=== PATIENT | female | born 1980 | race American Indian/Alaskan Native ===

== ENCOUNTER 2017-07-24 17:22 | Emergency (ER) | payer OTHER ==
[2017-07-24 18:15] LABS: Basophils % (Auto) 0.5 % (0.0-1.8); Eosinophils # (Auto) 0.1 K/mm3 (0.0-0.4); Hematocrit 43.8 % (30.3-42.9); Lymphocytes # (Auto) 2.4 K/mm3 (1.2-5.4); Lymphocytes % (Auto) 34.3 % (13.4-35.0); Mean Corpuscular HGB Conc 34 % (30-34); Mean Corpuscular Hemoglobin 29 pg (28-32); Mean Corpuscular Volume 85 fl (79-97); Monocytes # (Auto) 0.4 K/mm3 (0.0-0.8); Monocytes % (Auto) 6.2 % (0.0-7.3); Red Blood Count 5.14 M/mm3 (3.65-5.03); Red Cell Distribution Width 14.1 % (13.2-15.2)
[2017-07-24 18:16] LABS: Platelet Count 215 K/mm3 (140-440)
[2017-07-24 18:29] LABS: BUN/Creatinine Ratio 14; Blood Urea Nitrogen 10 mg/dL (7-17); Calcium 8.6 mg/dL (8.4-10.2); Hemolysis Index 6
--- NOTE | 2017-07-24 18:44 | XRay Report ---
FINAL REPORT PROCEDURE: Chest. TECHNIQUE: PA and lateral views. HISTORY: Shortness of breath . COMPARISON: No prior studies are available for comparison. FINDINGS: The heart and mediastinum appear normal. The lungs are clear and well expanded. There are no pleural effusions. The soft tissues and regional skeleton are unremarkable. IMPRESSION: Normal study.
--- NOTE | 2017-07-25 00:52 | Emergency Department Report ---
ED General Adult HPI - General Chief complaint: Chest Pain Stated complaint: CHEST PAIN Time Seen by Provider: 07/25/17 00:18 Source: patient Mode of arrival: Ambulatory Limitations: No Limitations - History of Present Illness Initial comments: Ms. Garg is a healthy 37-year-old female with anxiety depression. She presents with 3 nights of chest pain. When she lays flat at night she feels as if she can't breathe. She feels a heaviness. The symptoms improve when she sits up. Mother's Day springtime is extremely hard. Her premature child a years ago. After mother says she tends to have a depressed mood. She's had insomnia. She denies leg pain. She denies chest pain currently. Over the last year she's noticed fatigue and loss. She also has had a social stress at work. Her work performance has declined. She is now on a performance improvement plan. Patient is now 332 pounds. Her normal weight is 260 pounds. -: Gradual, days(s) (3) Location: chest Severity scale (0 -10): 2 Quality: other (heavy) Consistency: intermittent Improves with: movement Associated Symptoms: shortness of breath - Related Data Allergies Allergy/AdvReac Type Severity Reaction Status Date / Time No Known Allergies Allergy Unverified 07/24/17 17:33 ED Review of Systems ROS: Stated complaint: CHEST PAIN Other details as noted in HPI Comment: All other systems reviewed and negative Constitutional: denies: fever, malaise Respiratory: denies: cough Cardiovascular: chest pain. denies: palpitations ED Past Medical Hx - Past Medical History Previous Medical History?: Yes Additional medical history: MORBID OBESITY, VAGINAL DELIVERY - Surgical History Past Surgical History?: Yes Additional Surgical History: RIGHT KNEE - Social History Smoking Status: Current Every Day Smoker Substance Use Type: None ED Physical Exam - General Limitations: No Limitations General appearance: alert, in no apparent distress - Head Head exam: Present: atraumatic, normocephalic - Eye Eye exam: Present: normal appearance - ENT ENT exam: Present: mucous membranes moist - Neck Neck exam: Present: normal inspection - Respiratory Respiratory exam: Present: normal lung sounds bilaterally. Absent: respiratory distress, wheezes, rales, rhonchi - Cardiovascular Cardiovascular Exam: Present: regular rate, normal rhythm, normal heart sounds. Absent: bradycardia, tachycardia, systolic murmur, diastolic murmur, rubs, gallop - GI/Abdominal GI/Abdominal exam: Present: soft, normal bowel sounds. Absent: distended, tenderness, guarding, rebound - Extremities Exam Extremities exam: Present: normal inspection - Back Exam Back exam: Present: normal inspection - Neurological Exam Neurological exam: Present: alert, oriented X3 - Psychiatric Psychiatric exam: Present: normal affect, normal mood - Skin Skin exam: Present: warm, dry, intact, normal color. Absent: rash ED Course Vital Signs 07/24/17 07/24/17 07/24/17 17:33 22:28 22:46 Temperature 98 F 98.1 F Pulse Rate 91 H 90 Respiratory 20 14 Rate Blood Pressure 141/85 Blood Pressure 134/82 [Left] O2 Sat by Pulse 100 98 98 Oximetry 07/24/17 07/25/17 23:00 00:00 Temperature Pulse Rate 91 H 87 Respiratory 21 22 Rate Blood Pressure 117/66 111/65 Blood Pressure [Left] O2 Sat by Pulse 96 99 Oximetry ED Medical Decision Making - Lab Data Result diagrams: 07/24/17 17:51 07/24/17 17:51 Laboratory Results - last 24 hr 07/24/17 07/24/17 17:51 17:51 WBC 7.1 RBC 5.14 H Hgb 15.0 H Hct 43.8 H MCV 85 MCH 29 MCHC 34 RDW 14.1 Plt Count 215 Lymph % (Auto) 34.3 [place] % (Auto) 6.2 Eos % (Auto) 2.0 Baso % (Auto) 0.5 Lymph # 2.4 [place] # 0.4 Eos # 0.1 Baso # 0.0 Seg Neutrophils % 57.0 Seg Neutrophils # 4.0 Sodium 139 Potassium 4.1 Chloride 103.2 Carbon Dioxide 28 Anion Gap 12 BUN 10 Creatinine 0.7 Estimated GFR > 60 BUN/Creatinine Ratio 14 Glucose 88 Calcium 8.6 Troponin T < 0.010 Vital Signs - 24 hr 07/24/17 07/24/17 07/24/17 17:33 22:28 22:46 Temperature 98 F 98.1 F Pulse Rate 91 H 90 Respiratory 20 14 Rate Blood Pressure 141/85 Blood Pressure 134/82 [Left] O2 Sat by Pulse 100 98 98 Oximetry 07/24/17 07/25/17 23:00 00:00 Temperature Pulse Rate 91 H 87 Respiratory 21 22 Rate Blood Pressure 117/66 111/65 Blood Pressure [Left] O2 Sat by Pulse 96 99 Oximetry - EKG Data 07/25/17 00:51 EKG obtained 1727 Rate 97 and normal sinus rhythm normal axis normal intervals no ST elevation no signs of ischemia no significant Q waves no signs of pericarditis. - Medical Decision Making Ms. Garg presents with symptoms of anxiety and inus infection. She also has positional chest pain which may be due to breast tissue acid reflux. She has responded to Zoloft well in the past. I prescribed 30 day supply of Zoloft. I strongly commended primary care follow-up. She is a full physical exam. I recommended evaluation for thyroid disease For Worsening Depression Fatigue and Hair Loss. She denies suicidal ideation. Her life partner is bedside. He is very supportive. Critical care attestation.: If time is entered above; I have spent that time in minutes in the direct care of this critically ill patient, excluding procedure time. ED Disposition Clinical Impression: Anxiety and depression Disposition: DC-01 TO HOME OR SELFCARE Is pt being admited?: No Does the pt Need Aspirin: No Condition: Stable Instructions: Anxiety (ED), Depression (ED), Insomnia (ED) Referrals: LJ LEROY MD [Primary Care Provider] - 3-5 Days Forms: Work/School Release Form(ED)
[2017-07-25 01:25] VITALS: BP 113/67
== END 2017-07-25 01:25 | disposition home or self-care (01) ==
LOC: ED 17:22
DX: F41.9 Anxiety disorder, unspecified (principal); F32.9 Major depressive disorder, single episode, unspecified; F17.200 Nicotine dependence, unspecified, uncomplicated
CPT/HCPCS: 36415; 71046; 80048; 84484; 85025; 93005; 93010; 99284

== ENCOUNTER 2017-11-15 19:16 | Emergency (ER) | payer OTHER ==
[2017-11-15] MEDS ORDERED: BOOSTRIX IM ONE (19:21)
[2017-11-15] MEDS ORDERED: NACL 0.9% 1000 ML 1,000 ML IV ONE (19:21)
[2017-11-15] MEDS ORDERED: NACL 0.9% 1000 ML 1,000 ML ONE (19:22)
[2017-11-15] MEDS ORDERED: ZOFRAN ONE (19:22)
[2017-11-15] MEDS ORDERED: ZOFRAN IV ONE (19:22)
[2017-11-15] MEDS ORDERED: SUBLIMAZE ONE ×2 (19:23→19:51)
[2017-11-15] MEDS ORDERED: SUBLIMAZE IV ONE ×3 (19:30→21:00)
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
[2017-11-15 19:39] LABS: Basophils # (Auto) 0.1 K/mm3 (0.0-0.1); Basophils % (Auto) 0.9 % (0.0-1.8); Eosinophils # (Auto) 0.2 K/mm3 (0.0-0.4); Eosinophils % (Auto) 2.1 % (0.0-4.3); Hematocrit 48.6 % (30.3-42.9); Hemoglobin 15.7 gm/dl (10.1-14.3); Lymphocytes # (Auto) 3.7 K/mm3 (1.2-5.4); Lymphocytes % (Auto) 41.2 % (13.4-35.0); Mean Corpuscular HGB Conc 32 % (30-34); Mean Corpuscular Hemoglobin 29 pg (28-32); Mean Corpuscular Volume 88 fl (79-97); Monocytes # (Auto) 0.7 K/mm3 (0.0-0.8); Monocytes % (Auto) 7.7 % (0.0-7.3); Platelet Count 243 K/mm3 (140-440); Red Blood Count 5.51 M/mm3 (3.65-5.03); Red Cell Distribution Width 14.1 % (13.2-15.2)
[2017-11-15 19:51] LABS: BUN/Creatinine Ratio 16; Blood Urea Nitrogen 14 mg/dL (7-17); Calcium 9.2 mg/dL (8.4-10.2); Hemolysis Index 10
[2017-11-15 21:06] VITALS: BP 116/95
== END 2017-11-15 21:03 | disposition other institution (70) ==
LOC: ED 19:16
DX: T21.22XA Burn of second degree of abdominal wall, initial encounter (principal); T24.212A Burn of second degree of left thigh, initial encounter; T21.27XA Burn of second degree of female genital region, initial encounter; E66.01 Morbid (severe) obesity due to excess calories; F17.200 Nicotine dependence, unspecified, uncomplicated; X19.XXXA Contact with other heat and hot substances, initial encounter; Y93.89 Activity, other specified; Y92.009 Unspecified place in unspecified non-institutional (private) residence as the place of occurrence of the external cause; Y99.8 Other external cause status
CPT/HCPCS: 36415; 80048; 85025; 90471; 90715; 96374; 96375; 99291; J2405; J3010; J7030

== ENCOUNTER 2020-05-29 17:26 | Emergency (ER) | payer SELFPAY ==
[2020-05-29 17:36] VITALS: BP 128/87
--- NOTE | 2020-05-29 19:29 | Event Note ---
ED Screening Note Date of service: 05/29/20 Time: 19:24 ED Screening Note: This initial assessment/diagnostic orders/clinical plan/treatment(s) is/are subject to change based on patients health status, clinical progression and re- assessment by fellow clinical providers in the ED. Further treatment and workup at subsequent clinical providers discretion. Patient/guardian urged not to elope from the ED as their condition may be serious if not clinically assessed and managed. Initial orders include:
--- NOTE | 2020-05-29 19:39 | Emergency Department Report ---
Chief Complaint: Upper Respiratory Infection Stated Complaint: POSS COVID/DIZZY/NO SMELL - HPI History of Present Illness: 39-year-old morbid obese -Cypriot female presents to the emergency room for intermittent hot and dizziness with a dry cough x2 weeks. Patient states today she noticed he has no taste or smell. Patient also reports of a frontal headache that she has had intermittently. She denies any sneezing or runny nose no nausea no vomiting no abdominal pain no pelvic pain no diarrhea constipation. Patient denies any chest pain or shortness of breath. - Exam Vital Signs: Vital Signs 05/29/20 17:33 Temperature 99.2 F Pulse Rate 104 H Respiratory 18 Rate Blood Pressure 128/87 O2 Sat by Pulse 98 Oximetry Physical Exam: Gen: alert oriented NAD Cardic: regular rate and rhythm no murmurs appreciated Resp: Clear to auscultation bilateral no wheezing no rales or rhonchi. Abdomen: Soft nontender nondistended normal bowel sounds. Mini neuro: Normal finger to nose exam, [id number] normal, Romberg neg, strengh 4/5 all extrimities, Alert and oriented time 3 Crainal nerve II-IIX intact MSE screening note: Focused history and physical exam performed. Due to findings the following was ordered: ED Disposition for MSE Disposition: MED SCREENING EXAM-LEFT Is pt being admited?: No Does the pt Need Aspirin: No Condition: Stable Additional Instructions: Recommend to get covid testing. Recommend to continue taking [id number] cough medication you can take Zyrtec's or Claritin. And follow-up with a primary care provider. Referrals: [facility] [Provider Group] - 3-5 Days
== END 2020-05-29 19:43 | disposition left against medical advice (07) ==
LOC: ED 17:26
DX: R42 Dizziness and giddiness (principal); Z53.21 Procedure and treatment not carried out due to patient leaving prior to being seen by health care provider